=== PATIENT | female | born 1950 | race Caucasian/White ===

== ENCOUNTER 2017-09-22 20:24 | Emergency (ER) | payer OTHER ==
[~2017-09-22] VITALS: Ht 157.5 cm; Wt 93.6 kg
[~2017-09-22 20:24] MED LIST: ALBU8HFA4 IH; CHOL10002 PO; CYCL10 PO; DSS100 PO; INSLAN SQ; LORA2TAB2 PO; METH40TA2 PO; PANT40TA25 PO; SITA50 PO
[2017-09-22] MEDS ORDERED: LISI-662 PO (20:37)
[2017-09-22 20:43] LABS: GLUCOSE,POINT OF CARE 114 MG/DL (70-110)
[2017-09-23] MEDS ORDERED: ACETAMINOPHEN 500 MG TABLET PO ONE (00:15)
[2017-09-23 00:37] VITALS: BP 135/86
== END 2017-09-23 00:39 | disposition home or self-care (01) ==
LOC: EMS 20:29
DX: R51 Headache (principal); E11.9 Type 2 diabetes mellitus without complications; I10 Essential (primary) hypertension; K21.9 Gastro-esophageal reflux disease without esophagitis; Z87.891 Personal history of nicotine dependence; Z88.6 Allergy status to analgesic agent
CPT/HCPCS: 82962; 99283